=== PATIENT | male | born 1960 | race Caucasian/White ===

== ENCOUNTER 2020-05-15 11:44 | Emergency (ER) | payer SELFPAY ==
[2020-05-15] MEDS ORDERED: Nitroglycerin 0.4 MG Tab.SL SL PRN (12:20)
[2020-05-15] MEDS ORDERED: Aspirin 81 MG Tab.Chew PO SCH (12:20)
[2020-05-15] MEDS ORDERED: Heparin Sodium 5,000 Units/ML Vial IVPUSH ONE (13:08)
[2020-05-15] MEDS ORDERED: Clopidogrel 75 MG Tab PO ONE (13:14)
[2020-05-15] MEDS ORDERED: Heparin Sodium/D5W 25,000 UNITS/500 ML BAG IV SCH (13:15)
--- NOTE | 2020-05-15 13:49 | EDM.PDOC ---
ED HPI GENERAL MEDICAL PROBLEM - General Chief Complaint: General Stated Complaint: BACK DISCOMFORT / MOVING AROUND CHEST CAVITY Time Seen by Provider: 05/15/20 12:05 Source of Information: Reports: Patient History Limitations: Reports: No Limitations - History of Present Illness INITIAL COMMENTS - FREE TEXT/NARRATIVE: patient presented to the ER with a c/o vague chest discomfort for 2 days. No h/o CAD in the past. He is visiting here from out of town for fishing. No SOB, no fever or chills. Reports that symptoms started 2 days ago after pulling a little ice fishing sindy se 3 days [place] 1/4 [place] Reports that his symptoms now are minimal, but last night he was experiencing tingling of the left jaw and heaviness in both upper arms. Upper back discomfo rt. No dizziness or palpitation. He took to baby aspirin before coming to the ER.\ No h/o smoking. h/o dyslipidemia that it's not treated. Middle Back Pain Score (Numeric/FACES): 3 - Related Data Allergies Allergy/AdvReac Type Severity Reaction Status Date / Time No Known Allergies Allergy Verified 05/15/20 11:53 Past Medical History - Past Health History Medical/Surgical History: Denies Medical/Surgical History Cardiovascular History: Reports: None Respiratory History: Reports: None Gastrointestinal History: Reports: None Musculoskeletal History: Reports: None Neurological History: Reports: None Social & Family History - Tobacco Use Tobacco Use Status *Q: Never Tobacco User Second Hand Smoke Exposure: No - Caffeine Use Caffeine Use: Reports: Soda Other Caffeine Use: diet MD - Alcohol Use Days Per Week of Alcohol Use: 2 Number of Drinks Per Day: 2 Total Drinks Per Week: 4 - Recreational Drug Use Recreational Drug Use: No ED ROS GENERAL - Review of Systems Review Of Systems: See Below Constitutional: Reports: No Symptoms HEENT: Reports: No Symptoms Respiratory: Reports: No Symptoms Cardiovascular: Reports: No Symptoms Endocrine: Reports: No Symptoms GI/Abdominal: Reports: No Symptoms Skin: Reports: No Symptoms Neurological: Reports: No Symptoms Psychiatric: Reports: No Symptoms ED EXAM, GENERAL - Physical Exam Exam: See Below Exam Limited By: No Limitations General Appearance: Alert, WD/WN, No Apparent Distress Eye Exam: Bilateral Eye: EOMI Ears: Normal External Exam Head: Atraumatic, Normocephalic Neck: Normal Inspection Respiratory/Chest: No Respiratory Distress, Lungs Clear, Normal Breath Sounds, No Accessory Muscle Use, Chest Non-Tender Cardiovascular: Normal Peripheral Pulses, Regular Rate, Rhythm, No Edema Peripheral Pulses: 2+: Carotid (L), Carotid (R), Radial (L), Radial (R) GI/Abdominal: Normal Bowel Sounds, Soft, Non-Tender Back Exam: Normal Inspection, Full Range of Motion Extremities: Normal Inspection Neurological: Alert, Oriented, CN II-XII Intact, Normal Cognition, Normal Gait Psychiatric: Normal Affect, Normal Mood Skin Exam: Warm, Dry, Intact Course - Vital Signs Last Recorded V/S: Last Vital Signs Temp 36.4 C 05/15/20 12:46 Pulse 60 05/15/20 12:46 Resp 16 05/15/20 12:46 BP 138/78 05/15/20 12:55 Pulse Ox 96 05/15/20 12:46 - Orders/Labs/Meds Orders: Active Orders 24 hr Category Date Time Status Transfer Patient (Change bed) [ADT] Routine ADT 05/15/20 13:14 Active Cardiac Monitoring [RC] STAT Care 05/15/20 12:59 Active Communication Order [RC] Per Unit Routine Care 05/15/20 12:59 Active Communication Order [RC] Per Unit Routine Care 05/15/20 12:59 Active EKG Documentation Completion [RC] ASDIRECTED Care 05/15/20 12:08 Active Oxygen Therapy [RC] ASDIRECTED Care 05/15/20 12:59 Active Chest 1V Frontal [CR] Stat Exams 05/15/20 12:08 Taken Aspirin Med 05/15/20 12:20 Active 81 mg PO DAILY Heparin Sodium/D5W [Heparin 25,000 Units in D5W 500 ML] Med 05/15/20 13:15 Active 25,000 units in 500 ml IV TITRATE Nitroglycerin [Nitrostat] Med 05/15/20 12:20 Active 0.4 mg SL Q5M PRN Medication Orders Aspirin (Aspirin) 81 mg PO DAILY NANCY Last Admin: 05/15/20 13:33 Dose: 81 mg Documented by: FAROOQ Heparin Sodium/Dextrose (Heparin 25,000 Units In D5w 500 Ml) 25,000 units in 500 mls @ 24.494 mls/hr IV TITRATE NANCY; Protocol Last Admin: 05/15/20 13:20 Dose: 12 units/kg/hr, 24.494 mls/hr Documented by: FAROOQ Cosigned by: NICOLAS Nitroglycerin (Nitrostat) 0.4 mg SL Q5M PRN PRN Reason: Chest Pain Last Admin: 05/15/20 12:55 Dose: 0.4 mg Documented by: FAROOQ Labs: Laboratory Tests 05/15/20 05/15/20 05/15/20 Range/Units 12:22 12:22 12:59 WBC 13.6 H (4.0-11.0) K/uL RBC 4.81 (4.50-6.50) M/uL Hgb 14.8 (13.0-18.0) g/dL Hct 42.6 (40.0-54.0) % MCV 89 (76-96) fL MCH 30.8 (27.0-32.0) pg MCHC 34.7 (31.0-35.0) g/dL RDW 12.5 (11.0-16.0) % Plt Count 274 (150-400) K/uL MPV 10.1 H (6.0-10.0) fL Neut % (Auto) 85.4 H (45.0-70.0) % Lymph % (Auto) 7.9 L (20.0-40.0) % [place] % (Auto) 6.5 (3.0-10.0) % Eos % (Auto) 0.1 L (1.0-5.0) % Baso % (Auto) 0.1 (0.0-0.5) % Neut # (Auto) 11.62 H (2.00-7.50) K/uL Lymph # (Auto) 1.07 L (1.50-4.00) K/uL [place] # (Auto) 0.89 H (0.20-0.80) K/uL Eos # (Auto) 0.01 L (0.04-0.40) K/uL Baso # (Auto) 0.02 (0.02-0.10) K/uL PT 10.0 (9.0-11.5) sec INR 1.0 (1.0-3.5) APTT 25.8 (24.4-33.2) SECONDS Sodium 136 (136-145) mmol/L Potassium 4.2 (3.5-5.1) mmol/L Chloride 101 (98-107) mmol/L Carbon Dioxide 27.4 (21.0-32.0) mmol/L Anion Gap 11.8 (5.0-15.0) mmol/L BUN 14 (8-26) mg/dL Creatinine 1.09 (0.70-1.30) mg/dL Est Cr Clr Drug Dosing 74.41 mL/min Estimated GFR (MDRD) > 60 (>60) MLS/MIN BUN/Creatinine Ratio 12.8 (6-25) Glucose 129 H (74-100) mg/dL Calcium 9.7 (8.5-10.1) mg/dL Total Bilirubin 0.6 (0.0-1.0) mg/dL AST 97 H (15-37) U/L ALT 50 (12-78) U/L Alkaline Phosphatase 65 (46-116) U/L Troponin I 8.320 H* (0.000-0.060) ng/mL Total Protein 7.7 (6.4-8.2) g/dL Albumin 4.0 (3.4-5.0) g/dL Globulin 3.7 (2.2-4.2) g/dL Albumin/Globulin Ratio 1.1 (0.8-2.0) Meds: Medications Generic Name Dose Route Start Last Admin Trade Name Freq PRN Reason Stop Dose Admin Aspirin 81 mg 05/15/20 12:20 05/15/20 13:33 Aspirin PO 81 mg DAILY NANCY Administration Heparin Sodium/Dextrose 25,000 units in 500 mls @ 24.494 mls/hr 05/15/20 13:15 05/15/20 13:20 Heparin 25,000 Units In D5w 500 Ml IV 12 units/kg/hr TITRATE NANCY 24.494 mls/hr Administration Protocol 12 UNITS/KG/HR Nitroglycerin 0.4 mg 05/15/20 12:20 05/15/20 12:55 Nitrostat SL 0.4 mg Q5M PRN Administration Chest Pain Discontinued Medications Generic Name Dose Route Start Last Admin Trade Name Freq PRN Reason Stop Dose Admin Clopidogrel Bisulfate 300 mg 05/15/20 13:14 05/15/20 13:36 Plavix PO 05/15/20 13:15 300 mg ONETIME ONE Administration Heparin Sodium (Porcine) 4,000 units 05/15/20 13:08 05/15/20 13:18 Heparin Sodium IVPUSH 05/15/20 13:09 4,000 units ONETIME ONE Administration - Re-Assessments/Exams Free Text/Narrative Re-Assessment/Exam: patient was connected to a monitor vitals were obtained - mild elevation in BP to 145/89, no tachycardia ASA 81mg PO x2, and nitro SL was given CXR WNL labs - were ordered. Significant for Trop elevation to 8 Concerns for NSTEMI. Heparin bolus 4,000 unit and a drip 1,000 unit were given Plavix 300mg PO discussed with the patient - need to transfer for cathlab.. Was accepted at [facility] to the [facility] Departure - Departure Time of Disposition: 13:52 Disposition: DC/Tfer to Acute Hospital 02 Condition: Fair Clinical Impression: NSTEMI (non-ST elevated myocardial infarction) Chest pain Qualifiers: Chest pain type: chest pain due to myocardial ischemia Ischemic chest pain type: unspecified angina pectoris type Qualified Code(s): I25.9 - Chronic ischemic heart disease, unspecified - Discharge Information *PRESCRIPTION DRUG MONITORING PROGRAM REVIEWED*: Not Applicable *COPY OF PRESCRIPTION DRUG MONITORING REPORT IN PATIENT AMBER: Not Applicable Referrals: PCP,None [Primary Care Provider] - Sepsis Event Note (ED) - Evaluation Sepsis Screening Result: No Definite Risk - Focused Exam Vital Signs: Vital Signs Temp Pulse Resp BP BP Pulse Ox 05/15/20 12:55 138/78 05/15/20 12:46 36.4 C 60 16 157/89 H 96 05/15/20 11:52 36.9 C 72 18 157/89 H 98 - Problem List & Annotations (1) NSTEMI (non-ST elevated myocardial infarction) SNOMED Code(s): 25619373 Code(s): I21.4 - NON-ST ELEVATION (NSTEMI) MYOCARDIAL INFARCTION Status: Acute Priority: High Current Visit: Yes - Problem List Review Problem List Initiated/Reviewed/Updated: Yes - My Orders Last 24 Hours: My Active Orders 05/15/20 12:08 EKG Documentation Completion [RC] ASDIRECTED Chest 1V Frontal [CR] Stat 05/15/20 12:20 Aspirin 81 mg PO DAILY Nitroglycerin [Nitrostat] 0.4 mg SL Q5M PRN 05/15/20 12:59 Cardiac Monitoring [RC] STAT Communication Order [RC] Per Unit Routine Communication Order [RC] Per Unit Routine Oxygen Therapy [RC] ASDIRECTED 05/15/20 13:14 Transfer Patient (Change bed) [ADT] Routine 05/15/20 13:15 Heparin Sodium/D5W [Heparin 25,000 Units in D5W 500 ML] 25,000 units in 500 ml IV TITRATE - Assessment/Plan Last 24 Hours: My Active Orders 05/15/20 12:08 EKG Documentation Completion [RC] ASDIRECTED Chest 1V Frontal [CR] Stat 05/15/20 12:20 Aspirin 81 mg PO DAILY Nitroglycerin [Nitrostat] 0.4 mg SL Q5M PRN 05/15/20 12:59 Cardiac Monitoring [RC] STAT Communication Order [RC] Per Unit Routine Communication Order [RC] Per Unit Routine Oxygen Therapy [RC] ASDIRECTED 05/15/20 13:14 Transfer Patient (Change bed) [ADT] Routine 05/15/20 13:15 Heparin Sodium/D5W [Heparin 25,000 Units in D5W 500 ML] 25,000 units in 500 ml IV TITRATE Plan: heparin bolus and drip plavix 300mg pain control vitals support transfer to [facility] - air isn't available due to weather conditions - so ground transport it is.
[2020-05-15] MEDS ORDERED: Morphine 10 MG/ML SDV ONE (13:58)
--- NOTE | 2020-05-16 17:30 | CR ---
CLINICAL DATA: Chest pain. AP CHEST, 15 MAY 2020: No priors. The heart size is normal. The lungs are clear. No pneumothorax. No pleural effusions. No evidence of acute intrathoracic disease. Job: [id number] MTDD
== END 2020-05-15 14:00 ==
LOC: LB.ED 11:44
DX: I21.4 Non-ST elevation (NSTEMI) myocardial infarction (principal); I25.9 Chronic ischemic heart disease, unspecified; I25.10 Atherosclerotic heart disease of native coronary artery without angina pectoris
CPT/HCPCS: 36415; 71045; 80053; 84484; 85025; 85610; 85730; 93005; 96365; 99285-25; A0429; A0888-GY; A9270-GY; J1644